=== PATIENT | male | born 1955 | race Caucasian/White ===

== ENCOUNTER 2016-10-04 09:48 | Inpatient (IN) ==
--- NOTE | 2016-10-04 10:19 | EKG Report ---
Stationary ECG Study [facility] ER Test Date: 10/04/2016 10:01:47 AM Pat Name: LOURDES ARELLANO Department: Room: Gender: Chain Splitter: Marita Holland : 1955 Requested by: Angel Perry Order Number: [id number] Christianne MD: KEVNY DUNCAN Intervals [place] Rate: 77 P: 55 NM: 138 QRS: 28 QRSD: 102 T: 74 QT: 361 QTc: 393 Interpretive Statements SINUS RHYTHM Electronically Signed On 10-04-16 18:43:19 CDT by KEVYN DUNCAN [id number]
[2016-10-04] MEDS ORDERED: ASPIRIN 325 MG TABLET PO STA (10:58)
[2016-10-04] MEDS ORDERED: NITROGLYCERIN 2% OINT 1 INCH/GM PACK TOP STA (10:58)
[2016-10-04] MEDS ORDERED: ONDANSETRON 4 MG/2 ML VIAL IV STA (10:58)
[2016-10-04] MEDS ORDERED: MORPHINE 2 MG/1 ML SYRINGE IV STA (10:58)
[2016-10-04] MEDS ORDERED: ALUM/MAG/SIMETH/LIDO VISC 1:1 30 ML BOTTLE PO STA (10:58)
--- NOTE | 2016-10-04 11:03 | Emergency Department Note ---
Alli Boykin Mantricia, am scribing for, and in the presence of, Angel Sr MD 11:03. Orin Boykin Charles R, MD, personally performed the services described in this documentation, ascribed by Nicole Carson in my presence, and it is both accurate and complete . Arrival - Arrival Chief Complaint: Chest Pain Stated Complaint: chest pain ED Nursing Triage Note: Pt c/o 2 episodes of right sided chest pain that radiates down his right arm. first episode during his sleep study at 0400 this am. The 2nd episode while walking this morning, which is his weekly routine. + Nausea. Sleep Lab told pt his EKG was normal during the pain. Mode of Arrival: Ambulatory Limitations: No Limitations Source: Patient Time Seen by Provider: 10/04/16 10:24 - History of Present Illness HPI Narrative: Pt is a 60 y/o white male arriving to ED by EMS with c/o chest pain that onset yesterday. Pt states that today he has had 2 episodes of chest pain. The first episode was during his sleep study at 0400 this morning. The 2nd episode was while walking this morning, which is his normal routine. He states that the pain was along the middle of his chest and radiates to his right bicep and has been waxing and waning. Pt had a stress test a month ago at [facility] and reports that everything was normal with the stress test and a previous EKG. He reports that at time of chest pain, he does experience some lightheadedness. He reports no other complaints. Onset (ago): day(s) Consistency: constant Severity scale (1-10): 4 Allergies/Adverse Reactions: Allergies Allergy/AdvReac Type Severity Reaction Status Date / Time No Known Allergies Allergy Verified 10/04/16 09:57 Home Medications: Home Medications Medication Instructions Recorded Confirmed Type Ascorbic Acid Tab [Vitamin C Tab] 500 mg PO QAM 10/04/16 10/04/16 History Aspirin EC Tab 81 mg PO QAM 10/04/16 10/04/16 History Citalopram [CeleXA] 20 mg PO QAM 10/04/16 10/04/16 History Gabapentin Cap/Tab [Neurontin 400 mg PO TID 10/04/16 10/04/16 History Cap/Tab] Pantoprazole Sodium 40 mg PO QAM PRN 10/04/16 10/04/16 History Ubidecarenone [Co Q-10] 100 mg PO QAM 10/04/16 10/04/16 History Verapamil HCl [Verapamil ER Cap] 180 mg PO QAM 10/04/16 10/04/16 History Vit B Comp/C/FA/Iron/Vit E 1 each PO QAM 10/04/16 10/04/16 History [Vitamin B Complex Tablet] buPROPion XL [Wellbutrin Xl] 300 mg PO QAM 10/04/16 10/04/16 History traZODone [Desyrel] 50 mg PO BEDTIME 10/04/16 10/04/16 History Review of System - Review of System 12 point system: reviewed and no additional remarkable complaints except as stated - Review of System Constitutional: Absent: chills, diaphoresis, fever Eyes: Absent: discharge, pain Head/Ears/Nose/Throat: Absent: earache, epistaxis Respiratory: Absent: cough, respiratory distress, wheezing Cardiovascular: Present: chest pain (radiates to right bicep) Gastrointestinal: Absent: abdominal pain, nausea, vomiting, diarrhea Genitourinary male: Absent: urgency, dysuria, frequency Musculoskeletal: Absent: arm pain, back pain, leg pain, neck pain Skin: Absent: rash, lesions Neurological: Absent: headache, weakness, numbness Psychiatric: Absent: anxiety, depression Medical,Surgical,& Family Hx - Medical History Cardio: History of: Hypertension Psychological: History of: Depression - Surgical History Orthopedic Surgeries: Surgical HX of;: Orthopedic Surgery (shoulders/knees) - Social History Smoking Status: Never smoker Frequency of Alcohol Use: None Type of Drug Use: None Exam Vital Signs: Vital Signs Temperature 98.9 F 10/04/16 09:52 Pulse Rate 68 10/04/16 10:30 Respiratory Rate 16 10/04/16 10:30 Blood Pressure 160/90 10/04/16 10:30 O2 Sat by Pulse Oximetry 95 10/04/16 10:30 - General General appearance: alert, in no apparent distress - Head Head exam: Present: atraumatic, normocephalic, normal inspection - Eye Eye exam: Present: normal appearance, PERRL, EOMI - ENT ENT exam: Present: normal exam, normal oropharynx, mucous membranes moist, TM's normal bilaterally, normal external ear exam - Neck Neck exam: Present: normal inspection, full ROM, trachea midline. Absent: tenderness - Chest Chest inspection: Present: symmetric chest wall rise, tenderness (middle with radiation to right bicep) - Respiratory Respiratory exam: Present: normal lung sounds bilaterally - Cardiovascular Cardiovascular exam: Present: regular rate, normal rhythm, normal heart sounds - Abdominal Exam Abdominal exam: Present: soft, normal bowel sounds. Absent: distention, tenderness, guarding, rebound - Extremities Exam Extremities exam: Present: normal inspection, full ROM, normal capillary refill. Absent: tenderness, pedal edema - Back Exam Back exam: Present: normal inspection, full ROM. Absent: tenderness - Neurological Exam Neurological exam: Present: alert, oriented X3, CN II-XII intact, normal gait, reflexes normal - Psychiatric Psychiatric exam: Present: normal affect, normal mood - Skin Skin exam: Present: warm, dry, intact, normal color Course - Consultations Consultation #1: Dr. Coates will admit patient to the hospital Time: 11:56 Results - Labs CBC & BMP: 10/04/16 10:33 10/04/16 10:33 Lab Results: I have reviewed the patients labs - Diagnostic Findings Procedure: Chest x-ray: report reviewed by me (Old healed granulomatous disease with minimal atelectasis at the left lung base. ) Disposition Clinical Impression: Chest pain, Unstable angina pectoris, Elevated troponin Case discussed with: patient, patient's family Disposition: Still a Patient Condition: Stable Time of Disposition: 12:12
[2016-10-04 11:07] LABS: Basophils % 0.4 % (0.0-0.8); Eosinophils # 0.2 10*3/uL (0.0-0.87); Eosinophils % 3.5 % (0.00-10.9); Hematocrit 46.4 VOL% (42.0-52.0); Hemoglobin 16.3 GM/DL (14.0-18.0); Immature Granulocytes % 0.7 %; Immature Granulocytes Absolute 0.04 #; Lymphocytes # 1.3 10*3/uL (1.4-4.0); Lymphocytes % 22.3 % (21.2-54.2); Mean Corpuscular HGB Conc 35.1 GM/DL (32-36); Mean Corpuscular Hemoglobin 32 PG (27-34); Mean Corpuscular Volume 91.7 FL (87-102); Mean Platelet Volume 12.4 FL (9.6-12.0); Monocytes # 0.6 10*3/uL (0.11-0.8); Monocytes % 10.1 % (1.7-12.7); Neutrophils # 3.6 10*3/uL (1.4-7.4); Platelet Count 160 T/CUMM (130-400); Red Blood Count 5.06 MC/CUMM (3.8-5.5); Red Cell Distribution Width 13.3 % (9.3-17.3); White Blood Count 5.7 T/CUMM (4-12)
[2016-10-04] MEDS ORDERED: NITROGLYCERIN 2% OINT 1 INCH/GM PACK TOP ONE (11:09)
[2016-10-04] MEDS ORDERED: ONDANSETRON 4 MG/2 ML VIAL ONE (11:09)
[2016-10-04] MEDS ORDERED: MORPHINE 2 MG/1 ML SYRINGE ONE (11:10)
[2016-10-04] MEDS ORDERED: ALUM/MAG/SIMETH/LIDO VISC 1:1 30 ML BOTTLE PO ONE (11:10)
[2016-10-04] MEDS ORDERED: ASPIRIN 325 MG TABLET ONE (11:10)
[2016-10-04 11:13] LABS: D-Dimer <= 0.5 MG/L FEU; INR 1.1; PT Patient Result 11.3 SECS
[2016-10-04 11:20] LABS: Albumin 3.8 G/DL (3.4-5.0); Bilirubin,Total 0.5 MG/DL (0.2-1.0); Calcium 8.7 MG/DL (8.5-10.1); Total Protein 6.2 G/DL (6.4-8.3)
[2016-10-04 11:21] LABS: Magnesium 2.1 MG/DL (1.8-2.4); Osmolality,Calculated 284.1 MOS/KG (273-304); Potassium 4.1 MMOL/L (3.5-5.1)
--- NOTE | 2016-10-04 11:30 | XRay Report ---
Portable chest Date: 10/04/2016 Clinical history: Chest pain Comparison: None Technique: Portable AP sitting chest Findings: The heart is normal in size. Calcified granulomata/nodes with minimal atelectasis at the left lung base. Degenerative changes are noted. Impression: Old healed granulomatous disease with minimal atelectasis at the left lung base. PROCEDURE INTERPRETED AT [facility] DEPARTMENT OF RADIOLOGY Final Report Signed by: Dr. Kenzie Montiel
[2016-10-04] MEDS ORDERED: ENOXAPARIN 100 MG/ML SYRINGE SUBCUT STA (11:56)
[2016-10-04] MEDS ORDERED: ENOXAPARIN 120 MG/0.8 ML SYRINGE SUBCUT ONE (11:58)
[2016-10-04 12:16] LABS: Apearance,Urine CLEAR (Clear); Bilirubin,Urine Negative (Negative); Blood, Urine Negative (Negative); Glucose,Urine (UA) Negative (Negative); Ketones,Urine Negative (Negative); Mucus,Urine Occasional /LPF (Occasional); Nitrite,Urine Negative (Negative); Protein,Urine Negative; Urine Color Yellow (Yellow); Urine Specific Gravity 1.009 (1.001-1.035); Urine Urobilinogen < 2.0 EU/DL (0.2-1.0); WBC,Urine <1 /HPF (0-6)
[2016-10-04] MEDS ORDERED: MAGNESIUM SULF RIDER 4 GM in PREMIX 1 EACH IV PRN (15:53)
[2016-10-04] MEDS ORDERED: POTASSIUM CHLORIDE 20 MEQ TABLET PO PRN (15:53)
[2016-10-04] MEDS ORDERED: SODIUM CHLORIDE 0.9% 1,000 ML IV SCH (15:53)
[2016-10-04] MEDS ORDERED: MAGNESIUM SULF RIDER 2 GM in PREMIX 1 EACH IV PRN (15:53)
[2016-10-04] MEDS ORDERED: MORPHINE 2 MG/1 ML SYRINGE IV PRN (15:53)
[2016-10-04] MEDS ORDERED: ONDANSETRON 4 MG/2 ML VIAL IV PRN (15:53)
[2016-10-04] MEDS ORDERED: PANTOPRAZOLE 40 MG TABLET PO PRN (15:53)
[2016-10-04] MEDS ORDERED: ACETAMINOPHEN 325 MG TABLET PO PRN (16:00)
[2016-10-04] MEDS: GABAPENTIN 400 MG CAPSULE PO SCH ×2 (16:21→21:37)
--- NOTE | 2016-10-04 16:54 | Cardiology History & Physical ---
Assessment and Plan - Time spent with patient Time spent with patient: Greater than 30 minutes (due to assessment, plan, and documentation) (1) Chest pain Status: Acute Assessment and plan: SEE PLAN OF CARE LISTED BELOW. Current Visit: Yes (2) Elevated troponin Status: Acute Assessment and plan: SEE PLAN OF CARE LISTED BELOW. Current Visit: Yes (3) Hypertension Status: Chronic Assessment and plan: SEE PLAN OF CARE LISTED BELOW. Current Visit: Yes (4) Family history of coronary artery disease Status: Chronic Assessment and plan: SEE PLAN OF CARE LISTED BELOW. Current Visit: Yes (5) Chronic back pain Status: Chronic Assessment and plan: SEE PLAN OF CARE LISTED BELOW. Current Visit: Yes (6) Depression Status: Chronic Assessment and plan: SEE PLAN OF CARE LISTED BELOW. Current Visit: Yes (7) Obesity (BMI 30.0-34.9) Status: Chronic Assessment and plan: SEE PLAN OF CARE LISTED BELOW. Current Visit: Yes (8) Former tobacco use Status: Chronic Assessment and plan: SEE PLAN OF CARE LISTED BELOW. 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 HENRIQUEZ Mr. Ventura is a 60 year old male with a history of hypertension, depression, chronic back pain, and borderline hyperlipidemia. Risk factors are significant for: hypertension, obesity, family history of CAD, former tobacco use. He is a former smoker, having quit 40 years ago, only smoking for 6 years. His father underwent CABG in his 60's. Mr. Ventura presented to the emergency room today with complaints of chest pain which has been going on for the past week. He tells me he has had 4-5 episodes of chest pain during the past week, each one progressively worsening. He tells me each episode has been at rest except for today's episode. He and his were walking when he developed midsternal chest discomfort which lasted approximately 30-45 minutes before subsiding. Today's episode was associated with nausea and lightheadedness. Before today, he reports no other associated symptoms with his pain. He tells me his pain radiates to his right chest and right arm. He describes this pain as feeling like "indigestion" but more severe. He had an episode of chest pain around 0400 this morning while undergoing a sleep study but the Sleep Lab told him his EKG was normal during his pain. He tells me he has undergone a stress test in July of this year at [facility] which was normal. He tells me it was performed for chest pain, but his current pain is different from the pain he was having at that time. He is retired but relatively active, walking approximately 2 miles several days during the week and kayaking on occasion. On admission, his CBC was unremarkable, potassium 4.1, magnesium 2.1, creatinine 1.1, and initial troponin 0.149. His EKG showed sinus rhythm with no acute EKG changes. We will continue to cycle his cardiac biomarkers and EKG's and follow trend. He has been started on anticoagulation as well as a beta patricio. He is bradycardic at times, so we will hold if his HR drops too low. Dr. Coates to follow with further plan and addendum. ASSESSMENT/PLAN: 1. CHEST PAIN - Some typical and some atypical features of angina. He has had a negative stress test in the past 3 months but has had progressive chest pain. We will follow his labs and EKG's. He may require heart catheterization if his pain persists and/or his enzymes trend up. Will continue with nitrates, anticoagulation, low dose beta patricio as tolerated. Check lipid panel in AM. Monitor CBC, BMP. 2. ELEVATED TROPONIN - Troponin currently 0.149. Will continue to cycle cardiac biomarkers and EKGs and follow trend. 3. HYPERTENSION - Currently well controlled. Will continue to monitor and adjust medications as needed. 4. FAMILY HISTORY OF CAD - Father had CABG in his 60's. 5. CHRONIC BACK PAIN - Pain medications per physician PRN. 6. DEPRESSION - Continue anti-depressant. 7. OBESITY - Encourage exercise. Currently walks 2 miles several days per week. 8. FORMER TOBACCO USE - Quit smoking 40 years ago. Home Medications Medication Instructions Recorded Confirmed Type Ascorbic Acid Tab [Vitamin C Tab] 500 mg PO QAM 10/04/16 10/04/16 History Aspirin EC Tab 81 mg PO QAM 10/04/16 10/04/16 History Citalopram [CeleXA] 20 mg PO QAM 10/04/16 10/04/16 History Gabapentin Cap/Tab [Neurontin 400 mg PO TID 10/04/16 10/04/16 History Cap/Tab] Pantoprazole Sodium 40 mg PO QAM PRN 10/04/16 10/04/16 History Ubidecarenone [Co Q-10] 100 mg PO QAM 10/04/16 10/04/16 History Verapamil HCl [Verapamil ER Cap] 180 mg PO QAM 10/04/16 10/04/16 History Vit B Comp/C/FA/Iron/Vit E 1 each PO QAM 10/04/16 10/04/16 History [Vitamin B Complex Tablet] buPROPion XL [Wellbutrin Xl] 300 mg PO QAM 10/04/16 10/04/16 History traZODone [Desyrel] 50 mg PO BEDTIME 10/04/16 10/04/16 History Allergies Allergy/AdvReac Type Severity Reaction Status Date / Time No Known Allergies Allergy Verified 10/04/16 09:57 Review of systems: - Constitutional: Present: headache(s), As per HPI. Absent: anorexia, chills, daytime sleepiness, excessive sweating, fever(s), frequent falls, increased appetite, lethargy, malaise, night sweats, stops breathing during sleep, weakness, weight gain, weight loss, fatigue. - EENT Eyes: Present: As per HPI. Absent: blurry vision, diplopia, loss of vision Ears: Present: As per HPI. Absent: decreased hearing, ear discharge, ear pain Nose, mouth and throat: Present: As per HPI. Absent: dysphagia, epistaxis, headache(s), hoarseness, lip swelling, nasal congestion, neck mass, neck pain, sinus pressure, sore throat, throat swelling, tongue swelling, vertigo - Cardiovascular: Present: chest pain at rest, chest pain with activity, occasionl edema, radiating jaw, neck or arm pain, lightheadedness, as per HPI. Absent: dyspnea, dyspnea on exertion, claudication, diaphoresis, orthopnea, palpitations, PND - Respiratory: Present: snoring, as per HPI. Absent: dyspnea, dyspnea on exertion, cough, hemoptysis, wheezing, pain on inspiration - Gastrointestinal: Present: As per HPI. Absent: abdominal pain, bloating, change in bowel habits, constipation, diarrhea, heartburn, hematemesis, hematochezia, loose stools, melena, nausea, vomiting - Genitourinary: Present: As per HPI. Absent: difficulty urinating, dysuria, flank pain, hematuria, nocturia, urinary frequency, urinary incontinence - Musculoskeletal: Present: chronic back pain, As per HPI. Absent: arthralgias, joint swelling, limited range of motion, muscle cramps, muscle weakness, myalgias - Neurological: Present: As per HPI. Absent: abnormal gait, abnormal speech, behavioral changes, confusion, convulsions, disequilibrium, dizziness, focal weakness, frequent falls, headache(s), memory loss, numbness, paresthesias, radicular pain, syncope, tremor(s) - Psychiatric: Present: As per HPI. Absent: anxiety, confusion, depression, panic attacks - Endocrine: Present: As per HPI. Absent: cold intolerance, fatigue, heat intolerance, polydipsia, polyphagia - Hematologic/Lymphatic: Present: As per HPI. Absent: easy bleeding, easy bruising, lymphadenopathy Medical,Surgical,& Family Hx - Medical History Cardio: History of: Hypertension Psychological: History of: Depression Musculoskeletal: History of: Back/Neck Problems - Surgical History Orthopedic Surgeries: Surgical HX of;: Orthopedic Surgery (shoulders/knees) - Family History Family History: Reports;: Family Cancer, Family Diabetes, Family Heart Disease, Family Hypertension - Social History Smoking Status: Former smoker Have you smoked in the last 12 months: No Frequency of Alcohol Use: None Type of Drug Use: None Marital Status: Lives With:: Spouse Functional capacity: independent ambulation Cardiology Physical Exam - Constitutional Vitals: Vital Signs Temp Pulse Resp BP Pulse Ox 98 F 48 L 18 132/75 97 10/04/16 16:09 10/04/16 16:09 10/04/16 16:09 10/04/16 16:09 10/04/16 15:31 Intake and Output 10/04/16 10/04/16 10/04/16 06:59 14:59 22:59 Other: Weight 257 lb 11.2 oz Patient Weight 10/05/16 06:59 Weight 257 lb 11.2 oz Exam: General appearance: Pleasant and cooperative. Overweight, no acute distress. - Head Head exam: Present: normal inspection, normocephalic, atraumatic. Absent: hematoma, laceration - Eye Eye exam: Present: EOMI. Absent: conjunctival injection, nystagmus, periorbital swelling, scleral icterus, laceration to eyelids Pupils: Present: PERRL. Absent: constricted, dilated, fixed, irregular, unequal - ENT ENT exam: Present: normal exam, normal external ear exam - Neck Neck exam: Present: normal inspection. Absent: lymphadenopathy, meningismus, tenderness, thyromegaly - Respiratory Respiratory exam: Present: clear to auscultation bilaterally. Absent: accessory muscle use, chest wall tenderness - Cardiovascular Cardiovascular exam: Present: regular rate and rhythm. Absent: carotid bruit, gallop, JVD, rubs, murmur - GI/Abdominal GI/Abdominal exam: Present: normal bowel sounds, soft. Absent: distended, firm , guarding, hernia, mass, tenderness, rebound. - Extremities Exam Extremities exam: Present: normal inspection, normal capillary refill. Upper extremity pulses 2+. Lower extremity pulses 2+. Absent: calf tenderness, edema -Musculoskeletal Exam Musculoskeletal: Present: No Fluid Collection, No Pain, Normal Range of Motion - Back Exam Back exam: Present: normal inspection. Absent: muscle spasm, vertebral tenderness - Neurological Exam Neurological exam: Present: alert, oriented X3, grossly intact without resting or essential tremor - Psychiatric Psychiatric exam: Present: normal affect, normal mood - Skin Skin exam: Present: normal color, warm, dry, intact. Absent: cyanosis, diaphoretic, rash, urticaria Result/EKG - Labs CBC & BMP: 10/04/16 10:33 10/04/16 10:33 Lab Results: I have reviewed the past 24 hour labs - EKG EKG results: interpreted by me, sinus rhythm
[2016-10-04] MEDS ORDERED: diphenhydrAMINE CAP 25 MG CAPSULE PO ONE (17:13)
[2016-10-04] MEDS: NITROGLYCERIN 2% OINT 1 INCH/GM PACK TOP SCH (17:16)
--- NOTE | 2016-10-04 17:50 | History and Physical Update ---
Sedation H&P Update - History and Physical H&P was reviewed, the patient examined and there: are no changes in the patients condition since last H&P was completed. - Dictation Physical: refer to H&P completed by admitting physician - Physical Exam Mental Status: alert and oriented Heart: regular rate and rhythm Lung: clear to auscultation Abdomen: within normal limits Vitals: within normal limits - Sedation Plan for Sedation: moderate Patient Consent: Procedure disscussed with patient and patinet has consented., Risks and benefits were discussed with patient,including infection,, bleeding, injury to surrounding structures, seizure, temporary nerve, Patient understands and accepts potential risks/benefits and agrees to, proceed. ASA Class: II Airway Assessment: Class II: Soft palate, uvula, fauces visible
--- NOTE | 2016-10-04 18:07 | EKG Report ---
Stationary ECG Study [facility] Test Date: 10/04/2016 6:06:39 PM Pat Name: LOURDES ARELLANO Department: Room: Gender: M Can Labeler: DIANNA : 1955 Requested by: Angel Perry Order Number: [id number] Christianne MD: KEVYN DUNCAN Intervals [place] Rate: 68 P: 58 [place]: 162 QRS: 11 QRSD: 102 T: 50 QT: 403 QTc: 420 Interpretive Statements SINUS RHYTHM WITH SINUS ARRHYTHMIA Electronically Signed On 10-04-16 18:45:47 CDT by KEVYN DUNCAN [id number]
[2016-10-04 20:33] LABS: Troponin I Only 0.137 NG/ML (0.00-0.045)
[2016-10-04] MEDS ORDERED: METOPROLOL TARTRATE 25 MG TABLET PO SCH ×2 (21:00)
[2016-10-04] MEDS ORDERED: CARVEDILOL 3.125 MG TABLET PO SCH (21:00)
[2016-10-04] MEDS: ENOXAPARIN 120 MG/0.8 ML SYRINGE SUBCUT SCH (21:26)
[2016-10-04] MEDS: ROSUVASTATIN 20 MG TABLET PO SCH (21:29)
[2016-10-04] MEDS: CARVEDILOL 3.125 MG TABLET PO SCH (21:35)
[2016-10-04] MEDS: traZODone 50 MG TABLET PO SCH (21:36)
[2016-10-04 22:29] LABS: Troponin I Only 0.063 NG/ML (0.00-0.045)
[2016-10-05] MEDS: NITROGLYCERIN 2% OINT 1 INCH/GM PACK TOP SCH ×2 (00:17→06:05)
[2016-10-05 05:31] LABS: Basophils % 0.3 % (0.0-0.8); Eosinophils # 0.2 10*3/uL (0.0-0.87); Eosinophils % 3.3 % (0.00-10.9); Hemoglobin 15.6 GM/DL (14.0-18.0); Immature Granulocytes % 0.5 %; Immature Granulocytes Absolute 0.03 #; Lymphocytes % 33.6 % (21.2-54.2); Mean Corpuscular HGB Conc 33.9 GM/DL (32-36); Mean Corpuscular Hemoglobin 32 PG (27-34); Mean Corpuscular Volume 92.7 FL (87-102); Mean Platelet Volume 12.4 FL (9.6-12.0); Monocytes # 0.6 10*3/uL (0.11-0.8); Neutrophils # 3.1 10*3/uL (1.4-7.4); Neutrophils % 52.3 % (38.7-73.9); Platelet Count 151 T/CUMM (130-400); Red Blood Count 4.96 MC/CUMM (3.8-5.5); Red Cell Distribution Width 13.5 % (9.3-17.3)
[2016-10-05] MEDS ORDERED: DIAZEPAM 5 MG TABLET PO ONE (06:00)
[2016-10-05 06:01] LABS: Calcium 8.3 MG/DL (8.5-10.1); Magnesium 2.4 MG/DL (1.8-2.4)
[2016-10-05 06:08] LABS: Troponin I Only 0.033 NG/ML (0.00-0.045)
[2016-10-05 06:17] LABS: Albumin 3.3 G/DL (3.4-5.0); Bilirubin,Total 0.5 MG/DL (0.2-1.0); Calcium 8.1 MG/DL (8.5-10.1); Magnesium 2.4 MG/DL (1.8-2.4); Osmolality,Calculated 283.1 MOS/KG (273-304); Risk Ratio 6.52; Thyroid Stimulating Hormone 2.14 uIU/ml (0.358-3.74); Total Protein 5.5 G/DL (6.4-8.3); VLDL CHOLESTEROL 58.4 MG/DL
--- NOTE | 2016-10-05 07:17 | XRay Report ---
Exam: XR chest 1V portable Date: 10/05/2016 4:00 AM Indication: Shortness of breath Comparison: 10/04/2016 Technical: AP portable Findings: Mild prominence the cardiac silhouette. Lateral marginal osteophytes are present. No obvious consolidating infiltrate or effusion. Mediastinum is unremarkable. External cardiac leads are present. Impression: 1. Cardiomegaly without decompensation. 2. Degenerative spondylosis change thoracic spine. PROCEDURE INTERPRETED AT [facility] DEPARTMENT OF RADIOLOGY Final Report Signed by: Dr. Prosper Mora
[2016-10-05] MEDS ORDERED: diphenhydrAMINE CAP 25 MG CAPSULE PO SCH (08:30)
[2016-10-05] MEDS ORDERED: ASPIRIN EC 325 MG TABLET PO SCH (09:00)
[2016-10-05] MEDS ORDERED: HEPARIN/NACL 0.9% 2 UNITS/ML 1,000 ML IV ONE (09:25)
[2016-10-05] MEDS ORDERED: LIDOCAINE 1% 20 ML VIAL ONE (09:25)
[2016-10-05] MEDS: ASPIRIN EC 81 MG TABLET PO SCH (09:26)
[2016-10-05] MEDS: CARVEDILOL 3.125 MG TABLET PO SCH (09:27)
[2016-10-05] MEDS: VERAPAMIL SR 180 MG TABLET PO SCH (09:27)
[2016-10-05] MEDS: ENOXAPARIN 120 MG/0.8 ML SYRINGE SUBCUT SCH (09:28)
[2016-10-05] MEDS: ROSUVASTATIN 20 MG TABLET PO SCH ×2 (09:32→13:00)
[2016-10-05] MEDS: CITALOPRAM 20 MG TABLET PO SCH ×2 (09:32→12:59)
[2016-10-05] MEDS: COENZYME Q10 100 MG CAPSULE PO SCH ×2 (09:32→12:59)
[2016-10-05] MEDS: MULTIVITAMIN (BEROCCA) TABLET PO SCH ×2 (09:32→13:00)
[2016-10-05] MEDS: PANTOPRAZOLE 40 MG TABLET PO SCH ×2 (09:33→13:00)
[2016-10-05] MEDS: ASCORBIC ACID 500 MG TABLET PO SCH ×2 (09:33→13:00)
[2016-10-05] MEDS: GABAPENTIN 400 MG CAPSULE PO SCH ×4 (09:33→21:31)
[2016-10-05] MEDS ORDERED: HYDROmorphone 2 MG/1 ML VIAL ONE (09:51)
[2016-10-05] MEDS ORDERED: MIDAZOLAM 2 MG/2 ML VIAL ONE (09:51)
[2016-10-05] MEDS ORDERED: TICAGRELOR 90 MG TABLET ONE (10:37)
--- NOTE | 2016-10-05 11:04 | Cardiac Catheterization ---
Date of Procedure:: 10/05/16 Pre-op Diagnosis: Chest pain CAD Post-op diagnosis: same Procedure: Cardiac catheterization procedure note #1 left heart catheterization #2 selective coronary angiography #3 left ventriculography #4 successful proximal LAD stent Omnipaque was used for procedure Description of procedure Following sterile preparation draping of the right groin local anesthesia was achieved by infiltration with 1% Xylocaine. Using a Cook needle the right femoral artery was cannulated and a #6 sheath was inserted. A 6 Uzbek pigtail catheter was introduced and advanced retrograde across aortic valve into the left pedicle and the end-diastolic pressure was recorded. Left ventriculography was performed the ECHOLS projection using 24 cc of contrast. A pullback recording made across aortic valve. The pigtail catheter change for a 6 Uzbek left Franki catheter and left coronary angiography was performed in several ECHOLS and CHADIAN projections. The catheter change for a 6 Uzbek right Amplatz catheter and right coronary angiography was performed in the CHADIAN projection only. The catheter change for a 6 Uzbek left Franki guiding catheter in the left main was recannulated. The patient already received subcu Lovenox and aspirin this morning. A pro-water flex wire was introduced and advanced into the distal LAD. Direct stenting was performed using a 3.0 x 12 mm CONSTRVCTine Sprig Toys drug-coated stent. The maximum inflation pressure was 15 rosa for 30 seconds, creating a 3.21 mm lumen. The balloon was then withdrawn back into the guiding catheter leaving only the guidewire across the lesion. Repeat angiograms a widely patent vessel with mild residual narrowing, no dissection and brisk runoff. The guiding catheter and sheath were then removed and the femoral arteriotomy site was sealed percutaneously with a vascade closure device with prompt cessation of bleeding and prompt return of femoral and foot pulses. The patient was transferred back to telemetry in stable condition. Hemodynamic data Aortic pressure 136/82 mean 113 Left ventricle 136/14 Selective coronary angiography The circulation is balanced. The left main trunk is widely patent and trifurcates. The LAD is a large vessel wraps around the apex. There is a 90% proximal stenosis before the first septal electrical systems drafter. The diagonal branch is widely patent. The intermediate branch has mild irregular's only. The circumflex has mild irregularities only. The dominant coronary artery is widely patent and normal in size course and distribution. Left ventriculography There is mild anteroapical hypokinesis. Ejection fraction 50%. No mitral regurgitation. Conclusions #1 increased LVEDP 14 #2 mild anteroapical hypokinesis EF 50% #3 no mitral regurgitation #4 no aortic valve gradient #5 balance circulation #6 left main trunk-patent, trifurcates #7 LAD-90% proximal stenosis before first septal electrical systems drafter #8 diagonal-patent #9 intermediate branch-mild irregularities #10 circumflex system-mild irregularities #11 RCA widely patent #12 successful proximal LAD stent 3.0 x 12 mm Alpine Zions drug-eluting stent. The maximum inflation pressure was 15 and measures for 30 seconds, creating a 3.21 mm lumen. Good result obtained. Disposition The patient has severe single-vessel disease involving the proximal LAD before the first septal electrical systems drafter. The vessel was stented with a 3.0 x 12 mm Alpine Zions drug-eluting stent, postdilated 3.21 mm lumen. Good result obtained. He remain on aspirin Brilinta and statin therapy and continue normal saline hydration. A BMP and CPK/troponin will be checked in the morning. Cine pictures were were reviewed with the patient's Preethi. In addition, he will require aggressive lifestyle changes and risk factor modification. Implants: Proximal LAD stent 3.0 x 12 mm Synergy drug-coated stent postdilated 3.21 mm lumen. Good result obtained. Anesthesia: moderate conscious sedation Surgeon / Physician: Anshul Ozuna Estimated blood loss: minimal Specimens: none sent Condition: stable Disposition: floor - Medications / Follow-up
[2016-10-05] MEDS ORDERED: ZALEPLON 5 MG CAPSULE PO PRN (11:06)
[2016-10-05] MEDS: SODIUM CHLORIDE 0.9% 1,000 ML IV SCH ×3 (11:26→21:35)
--- NOTE | 2016-10-05 11:49 | EKG Report ---
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
[2016-10-05] MEDS ORDERED: CARVEDILOL 3.125 MG TABLET PO ONE (13:36)
[2016-10-05] MEDS: TICAGRELOR 90 MG TABLET PO SCH (21:28)
[2016-10-05] MEDS: traZODone 50 MG TABLET PO SCH (21:31)
[2016-10-05] MEDS: CARVEDILOL 6.25 MG TABLET PO SCH (21:31)
[2016-10-06 05:29] LABS: Basophils % 0.3 % (0.0-0.8); Eosinophils # 0.2 10*3/uL (0.0-0.87); Eosinophils % 3.3 % (0.00-10.9); Hematocrit 48.2 VOL% (42.0-52.0); Immature Granulocytes % 0.5 %; Immature Granulocytes Absolute 0.03 #; Lymphocytes # 1.5 10*3/uL (1.4-4.0); Lymphocytes % 23.8 % (21.2-54.2); Mean Corpuscular HGB Conc 33.2 GM/DL (32-36); Mean Corpuscular Hemoglobin 31 PG (27-34); Mean Corpuscular Volume 93.8 FL (87-102); Mean Platelet Volume 12.2 FL (9.6-12.0); Monocytes # 0.6 10*3/uL (0.11-0.8); Monocytes % 9.5 % (1.7-12.7); Neutrophils # 3.9 10*3/uL (1.4-7.4); Neutrophils % 62.6 % (38.7-73.9); Platelet Count 150 T/CUMM (130-400); Red Blood Count 5.14 MC/CUMM (3.8-5.5); Red Cell Distribution Width 13.7 % (9.3-17.3); White Blood Count 6.3 T/CUMM (4-12)
[2016-10-06 06:01] LABS: Calcium 8.5 MG/DL (8.5-10.1); Magnesium 2.3 MG/DL (1.8-2.4); Osmolality,Calculated 287.7 MOS/KG (273-304); Potassium 4.3 MMOL/L (3.5-5.1)
[2016-10-06 06:04] LABS: Blood Urea Nitrogen 11 MG/DL (7-18); Calcium 8.4 MG/DL (8.5-10.1); Glucose 98 MG/DL (74-106); Osmolality,Calculated 284.8 MOS/KG (273-304); Potassium 4.4 MMOL/L (3.5-5.1); Sodium 144 MMOL/L (136-145); Troponin I Only 0.033 NG/ML (0.00-0.045)
--- NOTE | 2016-10-06 07:21 | EKG Report ---
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
[2016-10-06] MEDS: VERAPAMIL SR 180 MG TABLET PO SCH (08:23)
[2016-10-06] MEDS: TICAGRELOR 90 MG TABLET PO SCH (08:23)
[2016-10-06] MEDS: CITALOPRAM 20 MG TABLET PO SCH (08:23)
[2016-10-06] MEDS: MULTIVITAMIN (BEROCCA) TABLET PO SCH (08:23)
[2016-10-06] MEDS: ASPIRIN EC 81 MG TABLET PO SCH (08:23)
[2016-10-06] MEDS: PANTOPRAZOLE 40 MG TABLET PO SCH (08:24)
[2016-10-06] MEDS: ROSUVASTATIN 20 MG TABLET PO SCH (08:24)
[2016-10-06] MEDS: COENZYME Q10 100 MG CAPSULE PO SCH (08:24)
[2016-10-06] MEDS: GABAPENTIN 400 MG CAPSULE PO SCH (08:24)
[2016-10-06] MEDS: CARVEDILOL 6.25 MG TABLET PO SCH (08:24)
[2016-10-06] MEDS: ASCORBIC ACID 500 MG TABLET PO SCH (08:24)
--- NOTE | 2016-10-06 11:07 | Discharge Summary ---
Hospital Course - Hospital Course Hospital Course: SHERIFF DEPUTY: DR. COATES PCP: DR. HENRIQUEZ Mr. Ventura is a 60 year old male who presented to the emergency room with complaints of chest pain x 1 week. He has a history of hypertension, depression, chronic back pain, and borderline hyperlipidemia. On admission, he was found to have a troponin of 0.149 with normal H&H, normal creatinine. He previously had a negative stress test 3 months ago, but has had progressive anginal symptoms. In light of this, it was elected to take him to the cardiac catheterization lab. Left heart catheterization was performed on 10/05/16 and the patient received a drug-eluting stent to a 90% stenosis of the proximal LAD. He was loaded with Brilinta and observed overnight on the telemetry unit. He had no post-cath complications. He has reported some shortness of breath following the cath. I suspect this is related to him starting Brilinta since he reports this was not present previously. He has already had his morning dose of Brilinta. We will send him home with his PM dose of Brilinta and he will be changed to Plavix 75mg PO Daily tomorrow morning. We will send this prescription in for him. His vital signs have been stable. He has been a little hypertensive and at times bradycardic. He is already on Verapamil 180mg po daily and Coreg 6.25mg po BID. I'll add Lisinopril 5mg po daily to his regimen and check a CMP in 1 week. His labwork is stable. His right groin dressing has been removed. Right groin cath site is without bleeding, hematoma, ecchymosis, or bruit. Femoral pulse is 3+. He has mild tenderness to palpation. Peripheral pulses are 3+. At this time, he has met criteria for discharge and is anxious to go home. - Time spent with patient Time with patient DS: Less than 30 minutes Diagnosis - Discharge Diagnosis (1) Chest pain Status: Resolved (2) Elevated troponin Status: Resolved (3) Hypertension Status: Chronic (4) Family history of coronary artery disease Status: Chronic (5) Chronic back pain Status: Chronic (6) Depression Status: Chronic (7) Obesity (BMI 30.0-34.9) Status: Chronic (8) Former tobacco use Status: Chronic Specialty Discharge - Follow Up or Referrals Follow up with: Edward Coates MD [Physician] - 1 Week (Follow up with Dr. Coates in 1-2 weeks with CBC, CMP, EKG. ) Discharge Plan - Discharge Data Disposition: Disch To Home/Self Care Condition at Discharge: Stable Discharge Diet: heart healthy Activity: other (post cath expectations) Hygiene: may shower (post cath expectations) Weight Bearing at Discharge: full weight bearing Driving: not for (2 days) Contact your physician if you experience:: fever over 101, Difficulty voiding, Redness or swelling, Nausea/Vomiting, Shortness of breath, Bleeding, pain uncontrolled by pain medications - Discharge Medications New Carvedilol [Coreg] 6.25 mg PO BID #60 tablet Rosuvastatin [Crestor] 40 mg PO DAILY #30 tablet Clopidogrel [Plavix] 75 mg PO DAILY #30 tablet Lisinopril 5 mg PO DAILY #30 tablet Continue buPROPion XL [Wellbutrin Xl] 300 mg PO QAM Pantoprazole Sodium 40 mg PO QAM PRN PRN Reason: Indigestion Ascorbic Acid Tab [Vitamin C Tab] 500 mg PO QAM traZODone [Desyrel] 50 mg PO BEDTIME Vit B Comp/C/FA/Iron/Vit E [Vitamin B Complex Tablet] 1 each PO QAM Gabapentin Cap/Tab [Neurontin Cap/Tab] 400 mg PO TID Citalopram [CeleXA] 20 mg PO QAM Ubidecarenone [Co Q-10] 100 mg PO QAM Verapamil HCl [Verapamil ER Cap] 180 mg PO QAM Aspirin EC Tab 81 mg PO QAM - Follow Up or Referral Follow Up: Edward Coates MD [Physician] - 1 Week (Follow up with Dr. Coates in 1-2 weeks with CBC, CMP, EKG. ) - Forms/Instructions Instructions: Coronary Artery Disease (GEN), Left Heart Catheterization (DC), Heart Healthy Diet (GEN), Coronary Intravascular Stent Placement (DC) Additional Discharge Instructions: Monitor blood pressure at home and bring blood pressure log to next follow up appointment. Exam - Constitutional Vitals: Period Temp Pulse Resp BP Sys/[place] Pulse Ox Last 24 Hr 97.6 F-98.2 F 51-66 16-20 137-163/78-99 92-99 Exam: General appearance: Pleasant and cooperative. Overweight, no acute distress. - Head Head exam: Present: normal inspection, normocephalic, atraumatic. Absent: hematoma, laceration - Eye Eye exam: Present: EOMI. Absent: conjunctival injection, nystagmus, periorbital swelling, scleral icterus, laceration to eyelids Pupils: Present: PERRL. Absent: constricted, dilated, fixed, irregular, unequal - ENT ENT exam: Present: normal exam, normal external ear exam - Neck Neck exam: Present: normal inspection. Absent: lymphadenopathy, meningismus, tenderness, thyromegaly - Respiratory Respiratory exam: Present: clear to auscultation bilaterally. Absent: accessory muscle use, chest wall tenderness - Cardiovascular Cardiovascular exam: Present: regular rate and rhythm. Absent: carotid bruit, gallop, JVD, rubs, murmur - GI/Abdominal GI/Abdominal exam: Present: normal bowel sounds, soft. Absent: distended, firm , guarding, hernia, mass, tenderness, rebound. - Extremities Exam Extremities exam: Present: normal inspection, normal capillary refill. Upper extremity pulses 2+. Lower extremity pulses 2+. Absent: calf tenderness, edema -Musculoskeletal Exam Musculoskeletal: Present: No Fluid Collection, No Pain, Normal Range of Motion - Back Exam Back exam: Present: normal inspection. Absent: muscle spasm, vertebral tenderness - Neurological Exam Neurological exam: Present: alert, oriented X3, grossly intact without resting or essential tremor - Psychiatric Psychiatric exam: Present: normal affect, normal mood - Skin Skin exam: Present: normal color, warm, dry, intact. Absent: cyanosis, diaphoretic, rash, urticaria -Right groin Right groin exam: No bleeding, hematoma, ecchymosis, or bruit. Femoral pulse 3+ . Mild tenderness to palpation. Peripheral pulses 2+ bilaterally. Discharge Results Procedures and tests throughout hospitalization: LEFT HEART CATHETERIZATION 10/05/16: Selective coronary angiography The circulation is balanced. The left main trunk is widely patent and trifurcates. The LAD is a large vessel wraps around the apex. There is a 90% proximal stenosis before the first septal subsurface augmentee operator. The diagonal branch is widely patent. The intermediate branch has mild irregular's only. The circumflex has mild irregularities only. The dominant coronary artery is widely patent and normal in size course and distribution. Left ventriculography There is mild anteroapical hypokinesis. Ejection fraction 50%. No mitral regurgitation. Conclusions #1 increased LVEDP 14 #2 mild anteroapical hypokinesis EF 50% #3 no mitral regurgitation #4 no aortic valve gradient #5 balance circulation #6 left main trunk-patent, trifurcates #7 LAD-90% proximal stenosis before first septal subsurface augmentee operator #8 diagonal-patent #9 intermediate branch-mild irregularities #10 circumflex system-mild irregularities #11 RCA widely patent #12 successful proximal LAD stent 3.0 x 12 mm Alpine Nitrous.IO drug-eluting stent. The maximum inflation pressure was 15 and measures for 30 seconds, creating a 3.21 mm lumen. Good result obtained. Labs on day of discharge: Labs from last 24 hours 10/06/16 10/06/16 10/06/16 05:07 05:07 05:07 WBC 6.3 RBC 5.14 Hgb 16.0 Hct 48.2 MCV 93.8 MCH 31 MCHC 33.2 RDW 13.7 Plt Count 150 MPV 12.2 H Neut % (Auto) 62.6 Lymph % (Auto) 23.8 [place] % (Auto) 9.5 Eos % (Auto) 3.3 Baso % (Auto) 0.3 Neut # (Auto) 3.9 Lymph # (Auto) 1.5 [place] # (Auto) 0.6 Eos # (Auto) 0.2 Baso # (Auto) 0.0 Immature Gran % 0.5 Nucleated RBC % 0.0 Immature Gran # 0.03 Nucleated RBCs # 0.00 Sodium 144 145 Potassium 4.4 4.3 Chloride 105 106 Carbon Dioxide 32 30 Anion Gap 11.4 13.3 BUN 11 12 Creatinine 1.10 1.10 GFR Calculation 100 100 BUN/Creatinine Ratio 10.00 10.00 Glucose 98 98 Calculated Osmolality 284.8 287.7 Calcium 8.4 L 8.5 Magnesium 2.3 Total Creatine Kinase 53 D CK-MB (CK-2) < 1.0 Troponin I 0.033 DS: Provider Date of admission: 10/04/16 12:13 Primary care physician: . No PCP Attending physician on admission: Edward Coates MD Consults: 10/05/16 09:59 Consult to Cardiac Rehabilitation [CONS] Routine Reason for Cardiac Rehabilitation: Risk Factor Modification Consult Comment: chest pain, elevated troponin 10/05/16 11:06 Consult to Cardiac Rehabilitation [CONS] Routine Reason for Cardiac Rehabilitation: Risk Factor Modification Discharging clinician: KARINA Thomas Expected date of discharge: 10/06/16
[2016-10-06 12:23] VITALS: BP 160/98
[2016-10-07] MEDS ORDERED: CLOPIDOGREL 75 MG TABLET PO SCH (09:00)
== END 2016-10-06 13:51 | disposition home or self-care (01) | DRG 247 ==
LOC: N.ED 09:48 → N.EDINP 12:13 → N.TELEN 15:58
PROVIDERS: ADMIT Internal Medicine Interventional Cardiology; ATTEND Internal Medicine Interventional Cardiology
PROC: CLCCHCL (ICD-10-PCS; 2016-10-05 10:45)

== ENCOUNTER 2021-09-28 13:47 | Inpatient (IN) ==
[2021-09-28 14:22] LABS: Basophils % 0.3 % (0.0-0.8); Eosinophils # 0.2 10*3/uL (0.0-0.87); Eosinophils % 1.6 % (0.00-10.9); Hematocrit 46.6 VOL% (42.0-52.0); Hemoglobin 15.3 GM/DL (14.0-18.0); Immature Granulocytes % 1.8 %; Immature Granulocytes Absolute 0.17 #; Lymphocytes # 1.9 10*3/uL (1.4-4.0); Lymphocytes % 19.8 % (21.2-54.2); Mean Corpuscular HGB Conc 32.8 GM/DL (32-36); Mean Corpuscular Volume 94.7 FL (87-102); Mean Platelet Volume 11.5 FL (9.6-12.0); Monocytes # 0.7 10*3/uL (0.11-0.8); Monocytes % 7.5 % (1.7-12.7); Platelet Count 238 T/CUMM (130-400); Red Blood Count 4.92 MC/CUMM (3.8-5.5); Red Cell Distribution Width 13.2 % (9.3-17.3); White Blood Count 9.5 T/CUMM (4-12)
[2021-09-28 14:38] LABS: Albumin 3.5 G/DL (3.4-5.0); Bilirubin,Total 0.4 MG/DL (0.20-1.00); Calcium 9.1 MG/DL (8.5-10.1); Osmolality,Calculated 282.5 MOS/KG (273-304); Potassium 4.5 MMOL/L (3.5-5.1); Total Protein 6.6 G/DL (6.4-8.2)
[2021-09-28] MEDS ORDERED: cefTRIAXone 1,000 MG in SODIUM CHLORIDE 0.9% 100 ML IV STA (14:49)
[2021-09-28] MEDS ORDERED: ALBUTEROL/IPRATROPIUM 3 ML NEB RESP TX STA (14:49)
[2021-09-28] MEDS ORDERED: SODIUM CHLORIDE 0.9% 1,000 ML IV STA ×2 (14:49→17:09)
[2021-09-28] MEDS ORDERED: methylPREDNISolone SOD SUC 125 MG/2 ML VIAL IV STA (14:49)
[2021-09-28] MEDS ORDERED: AZITHROMYCIN INJ 500 MG in SODIUM CHLORIDE 0.9% 250 ML IV STA (14:49)
[2021-09-28] MEDS ORDERED: ONDANSETRON 4 MG/2 ML VIAL IV PRN (17:01)
[2021-09-28] MEDS ORDERED: ALBUTEROL 2.5 MG/3 ML NEB RESP TX PRN (17:01)
[2021-09-28] MEDS ORDERED: guaiFENesin/CODEINE 5 ML LIQUID PO PRN (17:47)
[2021-09-28] MEDS: methylPREDNISolone SOD SUC 40 MG/1 ML VIAL IV SCH (18:36)
[2021-09-28] MEDS: CEFEPIME 1,000 MG in SODIUM CHLORIDE 0.9% 100 ML IV SCH (18:53)
[2021-09-28] MEDS: ALBUTEROL 2.5 MG/3 ML NEB RESP TX SCH ×2 (18:55→23:50)
[2021-09-28] MEDS: DOXYCYCLINE HYCLATE 100 MG CAPSULE PO SCH (21:50)
[2021-09-29] MEDS: CEFEPIME 1,000 MG in SODIUM CHLORIDE 0.9% 100 ML IV SCH ×4 (00:38→18:18)
[2021-09-29 04:46] LABS: Basophils % 0.1 % (0.0-0.8); Hematocrit 42.7 VOL% (42.0-52.0); Hemoglobin 14.1 GM/DL (14.0-18.0); Immature Granulocytes % 1.3 %; Immature Granulocytes Absolute 0.19 #; Lymphocytes # 0.9 10*3/uL (1.4-4.0); Lymphocytes % 6.1 % (21.2-54.2); Mean Corpuscular Volume 94.3 FL (87-102); Mean Platelet Volume 11.7 FL (9.6-12.0); Monocytes # 0.1 10*3/uL (0.11-0.8); Monocytes % 0.8 % (1.7-12.7); Neutrophils % 91.7 % (38.7-73.9); Platelet Count 209 T/CUMM (130-400); Red Blood Count 4.53 MC/CUMM (3.8-5.5); Red Cell Distribution Width 12.9 % (9.3-17.3); White Blood Count 14.2 T/CUMM (4-12)
[2021-09-29 05:07] LABS: Lymphocytes 5 % (20-55); Platelet Estimate Adequate; Total Cells Counted 100
[2021-09-29 05:23] LABS: Alanine Aminotransferase 34 U/L (16-61); Alkaline Phosphatase 67 U/L (45-117); Aspartate Amino Transferase 13 U/L (0-37); Bilirubin,Total < 0.39 MG/DL (0.20-1.00); Blood Urea Nitrogen 27 MG/DL (7-18); Calcium 8.9 MG/DL (8.5-10.1); Carbon Dioxide 25 MMOL/L (21-32); Chloride 110 MMOL/L (98-107); Cholesterol 130 MG/DL (50-200); Estimated Glom Filtration Rate 74 ML/MIN; Glucose 192 MG/DL (74-106); HDL Cholesterol 40 MG/DL (40-60); Osmolality,Calculated 290.3 MOS/KG (273-304); Potassium 3.9 MMOL/L (3.5-5.1); Risk Ratio 3.25; Sodium 141 MMOL/L (136-145); Thyroid Stimulating Hormone 0.319 uIU/ml (0.358-3.74); Total Protein 6.4 G/DL (6.4-8.2); Triglycerides 83 MG/DL (2-150); VLDL Cholesterol 16.6 MG/DL
[2021-09-29] MEDS: methylPREDNISolone SOD SUC 40 MG/1 ML VIAL IV SCH ×2 (06:25→18:17)
[2021-09-29] MEDS: PANTOPRAZOLE 40 MG TABLET PO SCH (06:30)
[2021-09-29] MEDS: guaiFENesin/CODEINE 5 ML LIQUID PO PRN ×3 (06:32→23:50)
[2021-09-29] MEDS: ALBUTEROL 2.5 MG/3 ML NEB RESP TX SCH ×3 (07:12→19:25)
[2021-09-29] MEDS: DOXYCYCLINE HYCLATE 100 MG CAPSULE PO SCH ×2 (08:23→20:57)
[2021-09-29] MEDS: TAMSULOSIN 0.4 MG CAPSULE PO SCH (13:17)
[2021-09-29] MEDS: buPROPion XL 150 MG TABLET PO SCH (13:17)
[2021-09-29] MEDS: ASPIRIN EC 81 MG TABLET PO SCH (13:17)
[2021-09-29] MEDS: DULoxetine 30 MG CAPSULE PO SCH (20:57)
[2021-09-29] MEDS: GABAPENTIN 300 MG CAPSULE PO SCH (20:57)
[2021-09-29] MEDS ORDERED: traZODone 50 MG TABLET PO SCH (21:00)
[2021-09-29] MEDS ORDERED: ROSUVASTATIN 20 MG TABLET PO SCH (21:00)
[2021-09-30] MEDS: CEFEPIME 1,000 MG in SODIUM CHLORIDE 0.9% 100 ML IV SCH ×2 (00:41→05:44)
[2021-09-30] MEDS: ALBUTEROL 2.5 MG/3 ML NEB RESP TX SCH ×2 (00:45→11:25)
[2021-09-30] MEDS: methylPREDNISolone SOD SUC 40 MG/1 ML VIAL IV SCH (05:23)
[2021-09-30] MEDS: PANTOPRAZOLE 40 MG TABLET PO SCH (05:44)
[2021-09-30 07:45] VITALS: BP 165/88
[2021-09-30 08:40] LABS: Calcium 9.3 MG/DL (8.5-10.1); Osmolality,Calculated 285.4 MOS/KG (273-304); Potassium 4.1 MMOL/L (3.5-5.1)
[2021-09-30] MEDS: TAMSULOSIN 0.4 MG CAPSULE PO SCH (08:54)
[2021-09-30] MEDS: GABAPENTIN 300 MG CAPSULE PO SCH (08:54)
[2021-09-30] MEDS: ASPIRIN EC 81 MG TABLET PO SCH (08:54)
[2021-09-30] MEDS: DULoxetine 30 MG CAPSULE PO SCH (08:54)
[2021-09-30] MEDS: DOXYCYCLINE HYCLATE 100 MG CAPSULE PO SCH (08:54)
[2021-09-30] MEDS: buPROPion XL 150 MG TABLET PO SCH (08:54)
[2021-09-30] MEDS ORDERED: MULTIVITAMIN (BEROCCA) TABLET PO SCH (09:00)
[2021-09-30] MEDS ORDERED: ASCORBIC ACID 500 MG TABLET PO SCH (09:00)
== END 2021-09-30 11:00 | disposition home or self-care (01) | DRG 153 ==
LOC: N.ED 13:47 → N.EDINP 17:01 → N.CC 20:10 → N.5E 09-29 15:37
PROVIDERS: ADMIT Internal Medicine; ATTEND Internal Medicine